=== PATIENT | female | born 1975 | race Caucasian/White ===

== ENCOUNTER → 2019-08-01 | Outpatient (CLI) | payer SELFPAY ==
[~2019-08-01] MED LIST: Hydrocodone-Ap1 EA23 PO; Verotin-Gr Cap1 EACH PO
[2019-08-01 17:25] LABS: BASOPHILS ABSOLUTE AUTO 0.14 K/mm3 (0.00-0.23); BASOPHILS PERCENT AUTO 2 % (0-2); EOSINOPHILS ABSOLUTE AUTO 0.06 K/mm3 (0.00-0.68); EOSINOPHILS PERCENT AUTO 1 % (0-6); Hematocrit 36.3 % (33.0-51.0); IMMATURE GRAN ABSOLUTE AUTO 0.03 K/mm3 (0.00-0.10); IMMATURE GRAN PERCENT AUTO 0 % (0-1); LYMPHOCYTES ABSOLUTE AUTO 2.78 K/mm3 (0.84-5.20); LYMPHOCYTES PERCENT AUTO 34 % (21-46); MONOCYTES ABSOLUTE AUTO 0.57 K/mm3 (0.16-1.47); MONOCYTES PERCENT AUTO 7 % (4-13); Mean Corpuscular HGB 21.7 pg (26.0-34.0); Mean Corpuscular HGB Conc 30.3 g/dL (31.5-36.5); Mean Corpuscular Volume 72 fL (80-100); Mean Platelet Volume 9.8 fL (9.1-12.4); NEUTROPHILS ABSOLUTE AUTO 4.61 K/mm3 (1.96-9.15); NEUTROPHILS PERCENT AUTO 56 % (41-73); Platelet Count 344 K/mm3 (150-400); RDW Coefficient Variation 17.8 % (11.7-14.2); RDW Standard Deviation 44.4 fL (35.1-46.3); Red Blood Cell Count 5.06 M/mm3 (3.80-5.20); White Blood Cell Count 8.19 K/mm3 (4.00-11.30)
[2019-08-01 17:45] LABS: Alanine Aminotransfer (ALT/SGP 145 U/L (12-78); Albumin, Blood 3.5 g/dL (3.4-5.0); Albumin/Globulin Ratio 0.8 (0.8-1.8); Alk Phos 118 U/L (50-136); Anion Gap 9 mmol/L (6-16); Aspartate Aminotrans (AST/SGOT 296 U/L (12-37); Bilirubin, Total 0.7 mg/dL (0.1-1.0); Blood Urea Nitrogen 13 mg/dL (8-24); Bun/Creatinine Ratio 17.8 (12.0-20.0); CO2, Blood 24 mmol/L (21-32); Calcium, Blood 8.4 mg/dL (8.5-10.1); Chloride, Blood 98 mmol/L (98-108); Creatinine, Blood 0.73 mg/dL (0.40-1.00); Globulin, Blood 4.5 g/dL (2.2-4.0); Glomerular Filtration Rate >60 (60-); Glucose, Blood 122 mg/dL (70-99); Potassium, Blood 3.4 mmol/L (3.5-5.5); Sodium, Blood 131 mmol/L (136-145)
== END | disposition home or self-care (01) ==
LOC: LAB SHORT 16:45 → LAB 16:45
PROVIDERS: Emergency Medicine
DX: R10.9 Unspecified abdominal pain (principal)
CPT/HCPCS: 80053; 85025

== ENCOUNTER 2024-08-27 02:06 | Emergency (ER) | payer OTHER ==
[~2024-08-27] VITALS: Ht 170.2 cm; Wt 56.7 kg
[2024-08-27] MEDS ORDERED: Ketorolac Tromethamine 30mg Vial IV ONE (03:00)
[2024-08-27 03:09] LABS: BASOPHILS ABSOLUTE AUTO 0.13 K/mm3 (0.00-0.23); BASOPHILS PERCENT AUTO 1 % (0-2); EOSINOPHILS ABSOLUTE AUTO 0.42 K/mm3 (0.00-0.68); EOSINOPHILS PERCENT AUTO 4 % (0-6); Hematocrit 28.7 % (33.0-51.0); Hemoglobin 8.2 g/dL (11.5-16.0); IMMATURE GRAN ABSOLUTE AUTO 0.02 K/mm3 (0.00-0.10); IMMATURE GRAN PERCENT AUTO 0 % (0-1); LYMPHOCYTES PERCENT AUTO 27 % (21-46); MONOCYTES ABSOLUTE AUTO 0.74 K/mm3 (0.16-1.47); MONOCYTES PERCENT AUTO 8 % (4-13); Mean Corpuscular HGB 18.2 pg (26.0-34.0); Mean Corpuscular HGB Conc 28.6 g/dL (31.5-36.5); Mean Corpuscular Volume 64 fL (80-100); Mean Platelet Volume 9.7 fL (9.1-12.4); NEUTROPHILS ABSOLUTE AUTO 5.84 K/mm3 (1.96-9.15); NEUTROPHILS PERCENT AUTO 60 % (41-73); Platelet Count 398 K/mm3 (150-400); RDW Coefficient Variation 19.7 % (11.7-14.2); RDW Standard Deviation 44.2 fL (35.1-46.3); Red Blood Cell Count 4.51 M/mm3 (3.80-5.20); White Blood Cell Count 9.75 K/mm3 (4.00-11.30)
[2024-08-27 03:27] LABS: Albumin, Blood 3.4 g/dL (3.4-5.0); Albumin/Globulin Ratio 0.8 (0.8-1.8); Bilirubin, Total 0.2 mg/dL (0.1-1.0); Bun/Creatinine Ratio 20.4 (12.0-20.0); Calcium, Blood 8.5 mg/dL (8.5-10.1); Creatinine, Blood 0.59 mg/dL (0.40-1.00); Globulin, Blood 4.2 g/dL (2.2-4.0); Total Protein, Blood 7.6 g/dL (6.4-8.2)
[2024-08-27 03:43] LABS: Bilirubin, Urine Neg (Neg); Blood, Urine Neg (Neg); Glucose Qualitative, Urine Neg (Neg); Ketones, Urine Neg (Neg); Leukocyte Esterase, Urine 2+ (Neg); Nitrite, Urine Pos (Neg); Protein, Urine Neg (Neg); Source, Urine Clean Catch; Urobilinogen, Urine NORM (Normal)
[2024-08-27 03:48] LABS: Appearance, Urine Hazy (Clear); Color, Urine Yellow (P-Yellow)
[2024-08-27 03:58] LABS: Bacteria Many /hpf; Red Blood Cells, Urine Not Seen /hpf (0-2); Squamous Epithelial Cells Few /hpf (Few); White Blood Cells, Urine 25-50 /hpf (0-5)
[2024-08-27] MEDS ORDERED: CefTRIAXone Sodium 1,000 MG in NS 50 ML IV ONE (04:35)
[2024-08-27] MEDS ORDERED: CEPH500 PO (06:11)
[2024-08-27] MEDS ORDERED: Norco 5-325 Ta1 EACH PO (08:40)
[2024-08-27 09:24] VITALS: BP 122/81
== END 2024-08-27 09:25 | disposition home or self-care (01) ==
LOC: ER 02:06
PROVIDERS: Emergency Medicine
DX: D39.8 Neoplasm of uncertain behavior of other specified female genital organs (principal); N39.0 Urinary tract infection, site not specified; Z79.899 Other long term (current) drug therapy
CPT/HCPCS: 74177; 76856; 80053; 81001; 84703; 85025; 87077; 87086; 87186; 96365-59; 96375; 99284-25; J0696; J1885; Q9967

== ENCOUNTER 2024-09-12 09:45 | Day surgery (SDC) | payer OTHER ==
[~2024-09-12] VITALS: Ht 170.2 cm; Wt 67.4 kg
[~2024-09-12 09:45] MED LIST changes: +CEPH500 PO; +Norco 5-325 Ta1 EACH PO
[2024-09-12] MEDS ORDERED: propofoL 20 ML IV ONE (10:44)
[2024-09-12] MEDS ORDERED: FentaNYL Citrate 50 MCG/ML 2 ML Injection ONE ×3 (10:44→13:34)
[2024-09-12] MEDS ORDERED: Midazolam HCl 1MG / ML 2ML Vial ONE (10:44)
[2024-09-12] MEDS ORDERED: CeFAZolin Sodium 2,000 MG VIAL ONE (10:45)
[2024-09-12] MEDS ORDERED: Citric Acid/Sodium Citrate 30 ML BTL ONE (10:54)
[2024-09-12] MEDS ORDERED: Metoclopramide HCl 5MG / ML 2ML Vial ONE (10:54)
[2024-09-12] MEDS ORDERED: Lactated Ringer's 1,000 ML IV ONE ×2 (11:01→13:17)
[2024-09-12] MEDS ORDERED: Bupivacaine 0.5% W/EPI 1:200000 SDV 30 ML Vial ONE (11:13)
[2024-09-12] MEDS ORDERED: Ondansetron HCl 2 MG / ML 2ML Vial ONE (11:22)
[2024-09-12] MEDS ORDERED: Dexamethasone Sod Phos 10 MG/ML 1ML VIAL ONE (11:22)
[2024-09-12] MEDS ORDERED: Rocuronium Bromide 10 MG/ML 5ML Injection IV ONE (11:22)
[2024-09-12] MEDS ORDERED: SuccINYLCHOLINE Chloride 100 MG/5 ML 5MLSYR ONE (11:22)
--- NOTE | 2024-09-12 11:26 | NUR ---
09/12/24 1126 SANTI HOFFMANN PT ATE "A FEW [place]ACK[place] @ [id number]" DR GUTHRIE AND DR PEREZ AND OR NURSE AWARE
[2024-09-12] MEDS ORDERED: Sugammadex Sodium 200 MG/2ML SDV (100 MG/ML) ONE (12:14)
--- NOTE | 2024-09-12 12:48 | NUR ---
09/12/24 1248 Stone,Nunu CHILDS CATHETER REMOVED END OF CASE 300ML CLEAR YELLOW URINE, PT TOLERATED WELL.
[2024-09-12 13:42] VITALS: BP 107/67
[2024-09-12] MEDS ORDERED: OxyCODONE 5 mg/Acetamin 325 mg TABLET ONE (13:51)
--- NOTE | 2024-09-12 14:04 | NUR ---
09/12/24 1404 Jemima Kolb PT STATED THAT HER PAIN LEVEL INCREASES TO A 8-9/10 WHEN SHE COUGHS. PT RECEIVED 5/325MG OF PERCOCET VIA PO. PT ABLE TO TOLERATE FLUIDS AND SOLIDS, EATING SNACK. NO C/O NAUSEA. PT UP TO THE RECLINER.
== END 2024-09-12 14:20 | disposition home or self-care (01) ==
LOC: ORSCSDS 09:45 → ORSCMMR 11:00 → ORSCSDS 11:30 → ORD 11:30 → ORSCSDS 14:20 → ORD 15:30
PROVIDERS: Obstetrics & Gynecology
PROC: 0UT04ZZ Resection of Right Ovary, Percutaneous Endoscopic Approach (ICD-10-PCS; principal; 2024-09-12 11:00)
PROC: 0UT54ZZ Resection of Right Fallopian Tube, Percutaneous Endoscopic Approach (ICD-10-PCS; principal; 2024-09-12 11:00)
DX: R10.2 Pelvic and perineal pain (principal); D27.0 Benign neoplasm of right ovary; N83.11 Corpus luteum cyst of right ovary; N83.8 Other noninflammatory disorders of ovary, fallopian tube and broad ligament; F17.210 Nicotine dependence, cigarettes, uncomplicated
CPT/HCPCS: 88305; A9270; J0330; J0690; J1100; J2250; J2405; J2704; J2765; J3010; J7120